=== PATIENT | male | born 2000 | race American Indian/Alaskan Native ===

== ENCOUNTER 2025-06-27 08:11 | Outpatient (AMB) | payer OTHER, SELFPAY ==
--- NOTE | 2025-06-27 08:08 | MHC.PC.OV ---
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 Intake Note: asthma Card Table Attendant Required: No Accompanied by: Self / Same As Patient Allergies No Known Allergies Allergy (Verified 06/27/25 08:09) Tobacco use date assessed: 06/27/25 Dental Screening Dental Screen Date: 06/27/25 Did you have a dental visit in the last 12 months?: Yes Did you have a dental problem in the last 6 months where you did not have access to dental care?: No Was dental information given to patient?: Patient has dentist HPI HPI Comments History of Present Illness Details History of Present Illness The patient is a 24-year-old male presenting with asthma management and evaluation of an ascended testicle. Asthma: - The patient reports no exacerbations in the past year and has not required emergency care or intubation. - He currently does not have any asthma inhalers at home. - Pulmonary function tests are planned to assess lung function. Ascended Testicle: - The patient reports a history of an ascended testicle since childhood, with the condition persisting for several years. - There is no associated pain or discomfort reported. - An ultrasound of the scrotum and pelvis is planned for further evaluation. Health Maintenance - Blood work including CBC, liver and kidney function tests, electrolytes, and screening for hepatitis B, hepatitis C, and HIV. - Pulmonary function tests due to asthma. Review of Systems - Respiratory: Denies dyspnea, wheezing, or recent exacerbations. - Genitourinary: Reports ascended testicle, denies pain or discomfort. 10-point ROS reviewed and negative except as noted in HPI Past Medical History - Asthma, with no exacerbations in the past year. - Ascended testicle, persistent since childhood. Physical Exam General: Well-appearing, in no acute distress. Vital signs: Within normal limits. HEENT: Normocephalic, atraumatic. PERRLA, EOMI. Conjunctiva clear, sclera anicteric. Oropharynx clear, mucous membranes moist. TMs intact bilaterally. Neck: Supple, no lymphadenopathy, no thyromegaly, no JVD or carotid bruits. Cardiovascular: RRR, normal S1/S2, no murmurs, rubs, or gallops. Peripheral pulses 2+ and symmetric. No edema. Respiratory: Lungs clear to auscultation bilaterally, no wheezes, rales, or rhonchi. Normal effort. Abdomen: Soft, non-tender, non-distended. Normoactive bowel sounds. No hepatosplenomegaly, no masses. MSK: Full range of motion, no joint swelling or deformity. Normal gait. Skin: Warm, dry, intact. No rashes, lesions, or pallor. Neuro: Alert and oriented x3. Cranial nerves II-XII intact. Strength 5/5 throughout. Sensation intact. Reflexes 2+ symmetric. Normal coordination and gait. Psych: Appropriate mood and affect. Normal judgment and insight.General: Well-appearing, in no acute distress. - the 1 testicle palpated could not palpate 2nd testicle Discussion Notes I discussed with the patient the need for an ultrasound of the scrotum and pelvis to evaluate the ascended testicle. We also talked about performing pulmonary function tests due to his asthma. I informed him about the blood work to be done, including CBC and screening for hepatitis B, hepatitis C, and HIV. I advised him to follow up in one to two weeks after completing the tests. Plan 1. Mild intermittent asthma, uncomplicated J45.20 - Plan to perform pulmonary function tests to assess lung function. - Prescribe an inhaler to be picked up at the patient's pharmacy. 2. Undescended testicle, unspecified Q53.9 - Plan to perform an ultrasound of the scrotum and pelvis for further evaluation. - Referral to urology for further management. 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 - Complete the blood work and pulmonary function tests as scheduled. - Attend the ultrasound appointment for the scrotum and pelvis. - Follow up with the doctor in one to two weeks after completing the tests. [facility] Family History (Updated 06/27/25 @ 08:19 by Jimbo Bro MA) Father No problems noted. Mother Asthma Seizures Social History (Updated 06/27/25 @ 08:12 by Jimbo Bro MA) Housing: House Alcohol intake: current Alcohol intake frequency: does not drink Patient Tobacco Use Status: Never used Tobacco service: No Current occupational status: employed Cognitive needs: No Hearing needs: No Vision needs: Yes (rx glasses) Questionnaire PHQ-9 Over the last 2 weeks, how often have you been bothered by any of the following problems? 1. Little interest or pleasure in doing things: not at all 2. Feeling down, depressed, or hopeless: not at all 3. Trouble falling or staying asleep, or sleeping too much: not at all 4. Feeling tired or having little energy: not at all 5. Poor appetite or overeating: not at all 6. Feeling bad about yourself - or that you are a failure or have let yourself or your family down: not at all 7. Trouble concentrating on things, such as reading the newspaper or watching television: not at all 8. Moving or speaking so slowly that other people could have noticed. Or the opposite - being so fidgety or restless that you have been moving around a lot more than usual: not at all 9. Thoughts that you would be better off or of hurting yourself in some way: not at all Total score: 0 Depression Screening Interpretation: Negative Depression Screening Done: Yes Source: Developed by Drs. Nikunj Robin, Lilo Long, Jose Angel Figueroa and colleagues, with an educational mamadou from [email or web address]. Thrive Questionnaire Date Thrive assessed: 06/27/25 I am a: Patient What is your living situation today?: I have a steady place to live Within the past 12 months, did the food you bought not last and you didn't have the money to get more?: Never true Within the past 12 months, did you worry whether your food would run out before you got money to buy more?: Never true Do you have trouble paying for medicines?: No Do you have trouble getting transportation to medical appointments?: No Do you have trouble paying your heating and electricity bill?: No Do you have trouble taking care of your child, family member or friend?: No Do you have trouble with day-to-day activities such as bathing, preparing meals, shopping, managing finances, etc.?: No Are you currently unemployed and looking for a job?: No Are you interested in more education?: No Please select the resources that you would like help with: None Currently or been in a relationship where the following occur: No concerns reported THRIVE Score: 0 AUDIT C Alcohol Use Questionnaire (AUDIT-C) 1. How often do you have a drink containing alcohol?: Never 3. How often do you have six or more drinks on one occasion?: Never Total Score: 0 ED-7 AMB Questionnaire ED-7 Date ED - 7 assessed: 06/27/25 Feeling nervous, anxious, or on edge: 0 = Not at all Not being able to stop or control worryin = Not at all Worrying too much about different things: 0 = Not at all Trouble relaxin = Not at all Being so restless that it is hard to sit still: 0 = Not at all Becoming easily annoyed or irritable: 0 = Not at all Feeling afraid as if something awful might happen: 0 = Not at all Total ED-7 score (0-4 normal; 5-9 mild; 10-14 moderate; 15-21 severe): 0 Source: Developed by Drs. Nikunj Robin, Lilo Long, Jose Angel Figueroa and colleagues, with an educational mamadou from [email or web address]. ACT Questionnaire In the past 4 weeks, how much of the time did your asthma keep you from getting as much done at work, school or at home?: None of the time During the past 4 weeks, how often have you had shortness of breath?: Not at all During the past 4 weeks, how often did your asthma symptoms wake you up at night or earlier than usual in the morning?: Once a week During the past 4 weeks, how often have you had to use your rescue inhaler or nebulizer medication?: Not at all How would you rate your asthma control during the past 4 weeks?: Somewhat controlled Score: 21 Physical exam (Primary Care) Tobacco/Smoking Status: Tobacco use Status Tobacco use date assessed 06/27/25 06/27/25 08:12 Patient Tobacco Use Status Never used Tobacco 06/27/25 08:12 PHQ-9: PHQ-9 Score PHQ-9: Total score 0 06/27/25 08:15 Depression Screening Interpretation: Negative Thrive Assessment: Date of Thrive Assessment Date Thrive assessed 06/27/25 06/27/25 08:15 Currently or been in a relationship where the following occur: No concerns reported Coding Level of Care Code New Pt Level 3 (08929) Diagnoses Encounter to establish care with new provider Z76.89 Routine lab draw Z01.89 Encounter for screening, unspecified Z13.9 Counseling, unspecified Z71.9 Asthma J45.909 Routine screening for STI (sexually transmitted infection) Z11.3 Screening for HIV (human immunodeficiency virus) Z11.4 Screening for depression Z13.31 Screening for diabetes mellitus Z13.1 Screening for lipoid disorders Z13.220 Hypertension screen Z13.6 Undescended testicle, unilateral Q53.10 Assessment & Plan Assessment & Plan (1) Encounter to establish care with new provider: Code(s): Z76.89 - Persons encountering health services in other specified circumstances (2) Routine lab draw: Code(s): Z01.89 - Encounter for other specified special examinations (3) Encounter for screening, unspecified: Code(s): Z13.9 - Encounter for screening, unspecified (4) Counseling, unspecified: Code(s): Z71.9 - Counseling, unspecified (5) Asthma: Code(s): J45.909 - Unspecified asthma, uncomplicated (6) Routine screening for STI (sexually transmitted infection): Code(s): Z11.3 - Encounter for screening for infections with a predominantly sexual mode of transmission (7) Screening for HIV (human immunodeficiency virus): Code(s): Z11.4 - Encounter for screening for human immunodeficiency virus [HIV] (8) Screening for depression: Code(s): Z13.31 - Encounter for screening for depression (9) Screening for diabetes mellitus: Code(s): Z13.1 - Encounter for screening for diabetes mellitus (10) Screening for lipoid disorders: Code(s): Z13.220 - Encounter for screening for lipoid disorders (11) Hypertension screen: Code(s): Z13.6 - Encounter for screening for cardiovascular disorders (12) Undescended testicle, unilateral: Code(s): Q53.10 - Unspecified undescended testicle, unilateral Plan Orders: Orders Hepatitis B Surface Antibody Today Z13.9 - Encounter for screening, unspecified, Z76.89 - Persons encountering health services in other specified circumstances Hepatitis B Surface Antigen Today Z13.9 - Encounter for screening, unspecified, Z76.89 - Persons encountering health services in other specified circumstances Hepatitis C Antibody Today Z13.9 - Encounter for screening, unspecified, Z76.89 - Persons encountering health services in other specified circumstances HIV Ab/Ag Today Z13.9 - Encounter for screening, unspecified, Z76.89 - Persons encountering health services in other specified circumstances Magnesium Today Z13.9 - Encounter for screening, unspecified, Z76.89 - Persons encountering health services in other specified circumstances Vitamin D 1,25 dihydroxy Today Z13.9 - Encounter for screening, unspecified, Z76.89 - Persons encountering health services in other specified circumstances Complete Blood Count Auto Diff Today Z13.9 - Encounter for screening, unspecified, Z76.89 - Persons encountering health services in other specified circumstances Comprehensive Met. Panel Today Z13.9 - Encounter for screening, unspecified, Z76.89 - Persons encountering health services in other specified circumstances Hemoglobin A1c Today Z13.9 - Encounter for screening, unspecified, Z76.89 - Persons encountering health services in other specified circumstances Lipid Panel Today Z13.9 - Encounter for screening, unspecified, Z76.89 - Persons encountering health services in other specified circumstances UA CC w/rflx Micro + Cult Today Z13.9 - Encounter for screening, unspecified, Z76.89 - Persons encountering health services in other specified circumstances PFT pulmonary function test Today J45.909 - Unspecified asthma, uncomplicated, Z13.9 - Encounter for screening, unspecified, Z76.89 - Persons encountering health services in other specified circumstances US scrotum doppler Today Q53.10 - Unspecified undescended testicle, unilateral US pelvic complete Today Q53.10 - Unspecified undescended testicle, unilateral Referrals Urology Referral Q53.10 - Unspecified undescended testicle, unilateral Medications: New albuterol sulfate 90 mcg/actuation (Ventolin HFA) 2 puffs inhalation Q6H PRN 8.5 grams 0RF shortness of breath or wheezing J45.909 - Unspecified asthma, uncomplicated
[2025-06-27 08:21] VITALS: BP 110/62; PULSE 67; RESP 16; TEMP 36.8; O2SAT 97; BMI 30.9
--- OUTSIDE RECORDS SUMMARY | 2025-06-27 08:56 | XMS_ITS | Clinical Summary ---
Author Organization [facility] Address [address] [place] [address] Care Team Providers Care Nursing Home Administrator Name Role Phone Unavailable Primary Care Provider Unavailabl e Social History Tobacco Use Types Packs/Day Years Used Date Smoking Tobacco: Never Assessed Sex and Gender Information Value Date Recorded Sex Assigned at Not on file Legal Sex Male 12:19 AM EST Gender Identity Not on file Sexual Orientation Not on file Plan of Treatment Health Maintenance Due Date Last Done Comments HPV Vaccines (1 - Male 3-dos e series) 2015 DTaP,Tdap,and Td Vaccines (1 - Tdap) 2019 Hepatitis B Vaccines (1 of 3 - 19+ 3-dose series) 2019 Depression Screening 10/10/2024 COVID-19 Vaccine (1 - 2023-2 5 season) 2025 Influenza Vaccine (#1) 2025 RSV Immunization Adult Patie nts (1 - 1-dose 75+ series) 2075 HIB Vaccines Aged Out No longer eligi ble based on patient's age to complete this topic Hepatitis A Vaccines Aged Out No long er eligible based on patient's age to complete this topic IPV Vaccines Aged Out No longer eligi ble based on patient's age to complete this topic MMR Vaccines Aged Out No longer eligi ble based on patient's age to complete this topic Meningococcal ACWY Vaccine Aged Out N o longer eligible based on patient's age to complete this topic Meningococcal B Vaccine Aged Out No l onger eligible based on patient's age to complete this topic Pneumococcal Vaccine: Pediat rics (0 to 5 Years) and At-Risk Patients (6 to 49 Years) Aged Out No longer eligible b ased on patient's age to complete this topic RSV Immunization Patients Un clari 20 months Aged Out No longer eligible b ased on patient's age to complete this topic Varicella Vaccines Aged Out No longer eligible based on patient's age to complete this topic
== END 2025-06-27 08:48 | disposition home or self-care (01) ==
LOC: HO.HMCFMS 08:12
PROVIDERS: Visit Provider Student in an Organized Health Care Education/Training Program
DX: J45.909 Unspecified asthma, uncomplicated (principal); Q53.10 Unspecified undescended testicle, unilateral

== ENCOUNTER 2025-06-27 09:15 | Outpatient (REF) | payer OTHER, SELFPAY ==
--- NOTE | ~2025-06-27 | US_ITS ---
EXAMINATION: US SCROTUM WITH DOPPLER COMPLETE, US SCROTUM HISTORY: Q53.10 - Unspecified undescended testicle, unilateral. COMPARISON: There are no prior studies available for comparison. FINDINGS: Real-time grayscale ultrasound imaging of the scrotum was performed. Color and spectral Doppler analysis was also performed. RIGHT TESTICLE: The right testis is located in the inguinal canal and measures 3.3 x 0.9 x 1.7 cm. The testis is diffusely hypoechoic. No masses are seen. The right testis demonstrates normal arterial and venous color Doppler and spectral waveforms. RIGHT EPIDIDYMIS: Normal in size, shape, and vascularity. LEFT TESTICLE: The left testis measures 4.7 x 1.9 x 2.9 cm and demonstrates normal homogeneous echotexture. The left testis is normally located in the scrotum. No masses are seen. The left testis demonstrates normal arterial and venous color Doppler and spectral waveforms. LEFT EPIDIDYMIS: Normal in size, shape, and vascularity. VARICOCELE: None. HYDROCELE: No significant hydrocele is seen. OTHER COMMENTS: None. US/US scrotum doppler IMPRESSION: The right testis is located in the inguinal canal, demonstrates atrophy, and is diffusely hypoechoic. Normal vascular flow is demonstrated. The left testis is unremarkable. Electronically signed by: Nikunj Monge MD 06/27/2025 03:11 PM EDT
--- NOTE | ~2025-06-27 | US_ITS ---
EXAMINATION: US SCROTUM WITH DOPPLER COMPLETE, US SCROTUM HISTORY: Q53.10 - Unspecified undescended testicle, unilateral. COMPARISON: There are no prior studies available for comparison. FINDINGS: Real-time grayscale ultrasound imaging of the scrotum was performed. Color and spectral Doppler analysis was also performed. RIGHT TESTICLE: The right testis is located in the inguinal canal and measures 3.3 x 0.9 x 1.7 cm. The testis is diffusely hypoechoic. No masses are seen. The right testis demonstrates normal arterial and venous color Doppler and spectral waveforms. RIGHT EPIDIDYMIS: Normal in size, shape, and vascularity. LEFT TESTICLE: The left testis measures 4.7 x 1.9 x 2.9 cm and demonstrates normal homogeneous echotexture. The left testis is normally located in the scrotum. No masses are seen. The left testis demonstrates normal arterial and venous color Doppler and spectral waveforms. LEFT EPIDIDYMIS: Normal in size, shape, and vascularity. VARICOCELE: None. HYDROCELE: No significant hydrocele is seen. OTHER COMMENTS: None. US/US scrotum IMPRESSION: The right testis is located in the inguinal canal, demonstrates atrophy, and is diffusely hypoechoic. Normal vascular flow is demonstrated. The left testis is unremarkable. Electronically signed by: Nikunj Monge MD 06/27/2025 03:11 PM EDT
[2025-06-27 13:27] LABS: Appearance Urine Clear; Glucose Urine UA Negative (Negative); PH 6.0 (5.0-9.0); Specific Gravity - Urine 1.025 (1.005-1.025)
[2025-06-27 13:32] LABS: MANUAL DIFF FLAG NO
[2025-06-27 13:39] LABS: Hematocrit 46.0 % (42.0-52.0); Hemoglobin 15.7 g/dl (14.0-18.0); Imm Gran Abs Auto 0.02 X10*3/uL (0.00-0.03); Imm Gran Pct Auto 0.3 % (0.0-0.4); Lymphocytes Absolute Auto 2.1 X10*3/uL (1.2-4.9); Mean Corpuscular HGB Conc 34.1 g/dl (31.0-36.0); Mean Corpuscular Hemoglobin 28.6 pg (27.0-33.0); Mean Corpuscular Volume 83.9 fL (80.0-98.0); NRBC Abs Auto 0.000 X10*3/uL (0.0-0.012); NRBC Pct Auto 0.0 /100WBC (0.0-0.2); Platelet Count 340 X10*3/uL (160-400); Red Blood Count 5.48 X10*6/uL (4.60-5.80); White Blood Count 7.2 X10*3/uL (4.8-10.8)
[2025-06-27 13:50] LABS: Total Hemoglobin (HGBA1C) 3988.3333 umol/L
[2025-06-27 13:54] LABS: Alanine Aminotransferase 59 U/L (0-40); Albumin Level 4.5 g/dL (3.5-5.0); Alkaline Phosphatase 66 U/L (39-117); Anion Gap 9 (12-20); Aspartate Amino Transferase 34 U/L (5-37); Blood Urea Nitrogen 10 mg/dL (9-16); Calcium 9.9 mg/dL (8.4-10.2); Carbon Dioxide 32 mmol/L (22-29); Chloride 103 mmol/L (96-108); Cholesterol 171 mg/dL (<200); Estimated Glomerular Filt Rate > 60; HDL Cholesterol 30 mg/dL (>40); Magnesium 2.0 mg/dL (1.6-2.6); Potassium 3.9 mmol/L (3.3-5.1); Sodium 140 mmol/L (135-145); Total Protein 7.6 g/dL (6.5-8.0); Triglycerides 106 mg/dL (<150)
[2025-06-28 09:16] LABS: HBS Num1 0.00 mIU/mL (0-7.99); HBsAGNum1 0.46 S/CO (0.00-0.99); HIV Num 1 0.10 S/CO (0.00-0.99); Hepatitis B Surface Antigen Negative (Negative); ~HepC Num1 0.08 S/CO (0.00-0.79); ~Hepatitis B Surface Antibody NONREACTIVE (Nonreactive); ~Hepatitis C Antibody Nonreactive (Nonreactive)
[2025-07-03 01:08] LABS: VITAMIN D (1,25 OH) D3 54 pg/mL; Vit D (1,25-Dihydroxy) Total 54 pg/mL (18-72); Vitamin D (1,25 OH) D2 <8 pg/mL
== END 2025-06-27 09:16 | disposition home or self-care (01) ==
LOC: HO.HKASLDS 09:15
PROVIDERS: Visit Provider Student in an Organized Health Care Education/Training Program
DX: J45.909 Unspecified asthma, uncomplicated (principal); Q53.112 Unilateral inguinal testis; Z76.89 Persons encountering health services in other specified circumstances; Z11.3 Encounter for screening for infections with a predominantly sexual mode of transmission; Z11.4 Encounter for screening for human immunodeficiency virus [HIV]; Z71.9 Counseling, unspecified; Z13.31 Encounter for screening for depression; Z13.39 Encounter for screening examination for other mental health and behavioral disorders; Z13.1 Encounter for screening for diabetes mellitus; Z13.6 Encounter for screening for cardiovascular disorders
CPT/HCPCS: 36415; 76870; 80053; 80061; 81003; 82652; 83036; 83735; 85025; 86706; 86803; 87340; 87389; 93975; 96127; 96160

== ENCOUNTER → 2025-06-27 14:07 | Outpatient (BNV) | payer OTHER, SELFPAY | PROVIDERS: Visit Provider Radiology Diagnostic Radiology | DX: N50.0 Atrophy of testis (principal); R93.811 Abnormal radiologic findings on diagnostic imaging of right testicle | CPT/HCPCS: 76870; 93975 ==

== ENCOUNTER 2025-07-08 10:06 | Outpatient (AMB) | payer OTHER, SELFPAY ==
[2025-07-08 10:08] VITALS: BP 125/66; PULSE 52; RESP 16; TEMP 36.8; O2SAT 98; BMI 31.0
--- NOTE | 2025-07-08 10:08 | A.OFFPC_ITS ---
Vital Signs 07/08/25 10:08 Height 5 ft 4.96 in Weight 186 lb 2 oz BMI 31.0 BP 125/66 Blood Pressure Location Lt brachial Position Sitting Respiration 16 Pulse 52 Pulse Source Pulse Oximeter Temp 98.3 F Temp Source Oral Pulse Oximetry (%) 98 Oxygen Delivery Method Room Air Intake Visit Reasons: 2 week follow up Intake Note: asthma Hired Hand Required: No Accompanied by: Self / Same As Patient Allergies No Known Allergies Allergy (Verified 07/08/25 10:09) Tobacco use date assessed: 06/27/25 Dental Screening Dental Screen Date: 06/27/25 Did you have a dental visit in the last 12 months?: Yes Did you have a dental problem in the last 6 months where you did not have access to dental care?: No Was dental information given to patient?: Patient has dentist HPI HPI Comments History of Present Illness Details History of Present Illness The patient is a 24-year-old male presenting for review of laboratory results. Eosinophilia: - Eosinophilia was identified in the pat ient's lab results, indicating an increase in eosinophils, which are cells that react to allergies. Elevated ALT: - The patient's ALT level was found to b e elevated at 59 U/L, which is above the normal range of below 40 U/L. Hyperlipidemia: - The patient's LDL cholesterol level is 120 mg/dL, which is above the recommended level of below 100 mg/dL, and HDL cholesterol is 30 mg/dL, below the recommended level of above 40 mg/dL. Review of Systems 10-point ROS reviewed and negative excep t as noted in HPI Past Medical History Health Maintenance - Referral to suit maker for dietary jose gement of hyperlipidemia. - Ultrasound of the liver to assess for fatty liver disease. Physical Exam General: Well-appearing, in no acute distress. Vital signs: Within normal limits. HEENT: Normocephalic, atraumatic. PERRLA, EOMI. Conjunctiva clear, sclera anicteric. Oropharynx clear, mucous membranes moist. TMs intact bilaterally. Neck: Supple, no lymphadenopathy, no thyromegaly, no JVD or carotid bruits. Cardiovascular: RRR, normal S1/S2, no murmurs, rubs, or gallops. Peripheral pulses 2+ and symmetric. No edema. Respiratory: Lungs clear to auscultation bilaterally, no wheezes, rales, or rhonchi. Normal effort. Abdomen: Soft, non-tender, non-distended. Normoactive bowel sounds. No hepatosplenomegaly, no masses. MSK: Full range of motion, no joint swelling or deformity. Normal gait. Skin: Warm, dry, intact. No rashes, lesions, or pallor. Neuro: Alert and oriented x3. Cranial nerves II-XII intact. Strength 5/5 throughout. Sensation intact. Reflexes 2+ symmetric. Normal coordination and gait. Psych: Appropriate mood and affect. Normal judgment and insight. Plan 1. Eosinophilia - No immediate intervention required as eosinophilia is not causing symptoms. 2. Elevated Alt - Plan to perform an ultrasound of the l iver to rule out any underlying conditions such as fatty liver disease. 3. Hyperlipidemia - Referral to a suit maker for dietary ma nagement to improve cholesterol levels. - Repeat laboratory tests in six months to monitor cholesterol levels. Discussion Notes I discussed with the patient that his eosinophilia is not a cause for concern at this time. We reviewed his elevated ALT and the plan to perform a liver ultrasound to check for any underlying issues, such as fatty liver disease. I explained the importance of managing his cholesterol levels and referred him to a suit maker for dietary advice. We agreed to repeat laboratory tests in six months to monitor his cholesterol levels. I advised him to return for a follow- up after the ultrasound to discuss the results. Patient was informed and verbally consented to the use of an ambient scribe for clinic note documentation during this visit. Patient Instructions - Schedule and attend the liver ultrasou nd as planned. - Follow up with the suit maker for dieta ry advice to manage cholesterol levels. - Return for a follow-up visit after the ultrasound to discuss results. - Plan to have repeat laboratory tests i n six months. [facility] Medical History (Updated 07/08/25 @ 10:25 by Russel Seymour MD) Elevated liver enzymes Hyperlipidemia Family History Father No problems noted. Mother Asthma Seizures Social History Housing: House Alcohol intake: current Alcohol intake frequency: does not drink Patient Tobacco Use Status: Never used Tobacco service: No Current occupational status: employed Cognitive needs: No Hearing needs: No Vision needs: Yes (rx glasses) Questionnaire PHQ-9 Over the last 2 weeks, how often have you been bothered by any of the following problems? 1. Little interest or pleasure in doing things: not at all 2. Feeling down, depressed, or hopeless: not at all 3. Trouble falling or staying asleep, or sleeping too much: not at all 4. Feeling tired or having little energy: not at all 5. Poor appetite or overeating: not at all 6. Feeling bad about yourself - or that you are a failure or have let yourself or your family down: not at all 7. Trouble concentrating on things, such as reading the newspaper or watching television: not at all 8. Moving or speaking so slowly that other people could have noticed. Or the opposite - being so fidgety or restless that you have been moving around a lot more than usual: not at all 9. Thoughts that you would be better off or of hurting yourself in some way: not at all Total score: 0 Depression Screening Interpretation: Negative Depression Screening Done: Yes Source: Developed by Drs. Nikunj Robin, Lilo Long, Jose Angel Figueroa and colleagues, with an educational mamadou from [employer]. Thrive Questionnaire Date Thrive assessed: 06/27/25 I am a: Patient What is your living situation today?: I have a steady place to live Within the past 12 months, did the food you bought not last and you didn't have the money to get more?: Never true Within the past 12 months, did you worry whether your food would run out before you got money to buy more?: Never true Do you have trouble paying for medicines?: No Do you have trouble getting transportation to medical appointments?: No Do you have trouble paying your heating and electricity bill?: Yes Do you have trouble taking care of your child, family member or friend?: No Do you have trouble with day-to-day activities such as bathing, preparing meals, shopping, managing finances, etc.?: No Are you currently unemployed and looking for a job?: No Are you interested in more education?: No Please select the resources that you would like help with: None Currently or been in a relationship where the following occur: No concerns re ported THRIVE Score: 1 AUDIT C Alcohol Use Questionnaire (AUDIT-C) 1. How often do you have a drink containing alcohol?: Never 3. How often do you have six or more drinks on one occasion?: Never Total Score: 0 ED-7 AMB Questionnaire ED-7 Date ED - 7 assessed: 06/27/25 Feeling nervous, anxious, or on edge: 0 = Not at all Not being able to stop or control worryin = Not at all Worrying too much about different things: 0 = Not at all Trouble relaxin = Not at all Being so restless that it is hard to sit still: 0 = Not at all Becoming easily annoyed or irritable: 0 = Not at all Feeling afraid as if something awful might happen: 0 = Not at all Total ED-7 score (0-4 normal; 5-9 mild; 10-14 moderate; 15-21 severe): 0 Source: Developed by Drs. Nikunj Robin, Lilo Long, Jose Angel Figueroa and colleagues, with an educational mamadou from [employer]. Physical exam (Primary Care) Vital Signs: Last Vital Signs Temp 98.3 F 07/08/25 10:08 Pulse 52 07/08/25 10:08 Resp 16 07/08/25 10:08 BP 125/66 07/08/25 10:08 Pulse Ox 98 07/08/25 10:08 Oxygen Delivery Method Room Air 07/08/25 10:08 BMI result Body Mass Index 31.0 Tobacco/Smoking Status: Tobacco use Status Tobacco use date assessed 06/27/25 07/08/25 10:11 Patient Tobacco Use Status Never used Tobacco 07/08/25 10:11 PHQ-9: PHQ-9 Score PHQ-9: Total score 0 07/08/25 10:11 Depression Screening Interpretation: Negative Thrive Assessment: Date of Thrive Assessment Date Thrive assessed 06/27/25 07/08/25 10:11 Currently or been in a relationship where the following occur: No concerns reported Coding Level of Care Code Est Pt Level 3 (42372) Diagnoses Hyperlipidemia E78.5 Elevated liver enzymes R74.8 Encounter to discuss test results Z71.2 Eosinophilia D72.10 Assessment & Plan Assessment & Plan (1) Hyperlipidemia: Code(s): E78.5 - Hyperlipidemia, unspecified Category: Medical (2) Elevated liver enzymes: Code(s): R74.8 - Abnormal levels of other serum enzymes Category: Medical (3) Encounter to discuss test results: Code(s): Z71.2 - Person consulting for explanation of examination or test findings (4) Eosinophilia: Code(s): D72.10 - Eosinophilia, unspecified Plan Orders: Orders US abdomen limited Today R74.8 - Abnormal levels of other serum enzymes Referrals Nurse Navigator Referral E78.5 - Hyperlipidemia, unspecified
--- OUTSIDE RECORDS SUMMARY | 2025-07-08 11:18 | XMS_ITS | Clinical Summary ---
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
== END 2025-07-08 10:33 | disposition home or self-care (01) ==
LOC: HO.HMCFMS 10:07
PROVIDERS: PCP Student in an Organized Health Care Education/Training Program; Visit Provider Student in an Organized Health Care Education/Training Program
DX: E78.5 Hyperlipidemia, unspecified (principal); R74.8 Abnormal levels of other serum enzymes; Z71.2 Person consulting for explanation of examination or test findings; D72.10 Eosinophilia, unspecified

== ENCOUNTER 2025-08-12 10:04 | Outpatient (AMB) | payer OTHER, SELFPAY ==
--- NOTE | 2025-08-12 10:07 | A.OFFPC_ITS ---
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 Accompanied by: Self / Same As Patient Allergies No Known Allergies Allergy (Verified 08/12/25 10:07) Medication List - Last Reconciled 08/12/25 by Russel Seymour MD albuterol sulfate 90 mcg/actuation (Ventolin HFA) 2 puffs inhalation Q6H PRN Tobacco use date assessed: 08/12/25 Dental Screening Dental Screen Date: 08/12/25 Did you have a dental visit in the last 12 months?: Yes Did you have a dental problem in the last 6 months where you did not have access to dental care?: No Was dental information given to patient?: Patient has dentist HPI HPI Comments History of Present Illness Details History of Present Illness The patient is a 24-year-old male presenting for a review of his scrotal ultrasound results. Undescended right testicle: The patient has a known history of an undescended right testicle. Noncompliance with care: The patient reports he missed a scheduled appointment on the with either a principal solutions architect or for a breathing-related issue, as he was mandated to work. He states he called to reschedule but has not received a call back. Social History: - Employment: The patient reports his wo rk mandated his presence, causing him to reschedule a prior medical appointment. Diagnostic Results: - Scrotal Ultrasound: - Left testis:demonstrates normal homoge nous echo texture, is normally located in the scrotum with normal arterial and venous flow, and has no masses. - Right testis: Located in the inguinal canal, measures 3.3 x 0.9 x 1.7 cm, is diffusely hypoechoic with no masses, and demonstrates normal arterial and venous flow. Past Medical History - Right undescended testicle - Possible breathing condition, previous ly scheduled for evaluation - Previously scheduled for an appointmen t with a principal solutions architect Health Maintenance - The patient was advised to follow up o n missed appointments with a principal solutions architect and for a breathing-related issue. [facility] Medical History (Updated 08/12/25 @ 10:33 by Russel Seymour MD) Class 1 obesity Undescended right testicle Elevated liver enzymes Hyperlipidemia Family History Father No problems noted. Mother Asthma Seizures Social History Housing: House Alcohol intake: current Alcohol intake frequency: does not drink Patient Tobacco Use Status: Never used Tobacco service: No Current occupational status: employed Cognitive needs: No Hearing needs: No Vision needs: Yes (rx glasses) Questionnaire PHQ-9 Over the last 2 weeks, how often have you been bothered by any of the following problems? 1. Little interest or pleasure in doing things: not at all 2. Feeling down, depressed, or hopeless: not at all 3. Trouble falling or staying asleep, or sleeping too much: not at all 4. Feeling tired or having little energy: not at all 5. Poor appetite or overeating: not at all 6. Feeling bad about yourself - or that you are a failure or have let yourself or your family down: not at all 7. Trouble concentrating on things, such as reading the newspaper or watching television: not at all 8. Moving or speaking so slowly that other people could have noticed. Or the opposite - being so fidgety or restless that you have been moving around a lot more than usual: not at all 9. Thoughts that you would be better off or of hurting yourself in some way: not at all Total score: 0 Depression Screening Interpretation: Negative Depression Screening Done: Yes Source: Developed by Drs. Nikunj Robin, Lilo Long, Jose Angel Figueroa and colleagues, with an educational mamadou from [employer]. Thrive Questionnaire Date Thrive assessed: 08/12/25 I am a: Patient What is your living situation today?: I have a steady place to live Within the past 12 months, did the food you bought not last and you didn't have the money to get more?: Never true Within the past 12 months, did you worry whether your food would run out before you got money to buy more?: Never true Do you have trouble paying for medicines?: No Do you have trouble getting transportation to medical appointments?: No Do you have trouble paying your heating and electricity bill?: Yes Do you have trouble taking care of your child, family member or friend?: No Are you currently unemployed and looking for a job?: No Are you interested in more education?: No Please select the resources that you would like help with: None Currently or been in a relationship where the following occur: No concerns reported THRIVE Score: 1 AUDIT C Alcohol Use Questionnaire (AUDIT-C) 1. How often do you have a drink containing alcohol?: Never 3. How often do you have six or more drinks on one occasion?: Never Total Score: 0 ED-7 AMB Questionnaire ED-7 Date ED - 7 assessed: 08/12/25 Feeling nervous, anxious, or on edge: 0 = Not at all Not being able to stop or control worryin = Not at all Worrying too much about different things: 0 = Not at all Trouble relaxin = Not at all Being so restless that it is hard to sit still: 0 = Not at all Becoming easily annoyed or irritable: 0 = Not at all Feeling afraid as if something awful might happen: 0 = Not at all Total ED-7 score (0-4 normal; 5-9 mild; 10-14 moderate; 15-21 severe): 0 Source: Developed by Drs. Nikunj Robin, Lilo Long, Jose Angel Figueroa and colleagues, with an educational mamadou from [employer]. Review of Systems Narrative Review of Systems - General: Denies any other concerns. 10-point ROS reviewed and negative except as noted in HPI Physical exam (Primary Care) Vital Signs: Last Vital Signs Temp 98.8 F 08/12/25 10:16 Pulse 68 08/12/25 10:16 BP 137/71 08/12/25 10:16 Pulse Ox 95 08/12/25 10:16 Oxygen Delivery Method Room Air 08/12/25 10:16 BMI result Body Mass Index 31.4 Tobacco/Smoking Status: Tobacco use Status Tobacco use date assessed 08/12/25 08/12/25 10:08 Patient Tobacco Use Status Never used Tobacco 08/12/25 10:08 PHQ-9: PHQ-9 Score PHQ-9: Total score 0 08/12/25 10:16 Depression Screening Interpretation: Negative Thrive Assessment: Date of Thrive Assessment Date Thrive assessed 08/12/25 08/12/25 10:08 Currently or been in a relationship where the following occur: No concerns reported Narrative Physical Exam General: Well-appearing, in no acute distress. Vital signs: Within normal limits. HEENT: Normocephalic, atraumatic. PERRLA, EOMI. Conjunctiva clear, sclera an icteric. Oropharynx clear, mucous membranes moist. TMs intact bilaterally. Neck: Supple, no lymphadenopathy, no thyromegaly, no JVD or carotid bruits. Cardiovascular: RRR, normal S1/S2, no murmurs, rubs, or gallops. Peripheral pulses 2+ and symmetric. No edema. Respiratory: Lungs clear to auscultation bilaterally, no wheezes, rales, or rhonchi. Normal effort. Abdomen: Soft, non-tender, non-distended. Normoactive bowel sounds. No hepatosplenomegaly, no masses. MSK: Full range of motion, no joint swelling or deformity. Normal gait. Skin: Warm, dry, intact. No rashes, lesions, or pallor. Neuro: Alert and oriented x3. Cranial nerves II-XII intact. Strength 5/5 throughout. Sensation intact. Reflexes 2+ symmetric. Normal coordination and gait. Psych: Appropriate mood and affect. Normal judgment and insight. Coding Level of Care Code Est Pt Level 3 (43924) Diagnoses Undescended right testicle Q53.10 Class 1 obesity E66.9 Assessment & Plan Assessment & Plan (1) Undescended right testicle: Code(s): Q53.10 - Unspecified undescended testicle, unilateral Category: Medical (2) Class 1 obesity: Code(s): E66.9 - Obesity, unspecified Category: Medical Plan Consent The patient provided verbal consent to record the encounter. Patient was informed and verbally consented to the use of an ambient scribe for clinic note documentation during this visit. Plan 1. Undescended Right Testicle - Scrotal ultrasound confirmed the right testicle is located in the inguinal canal and the left testicle is normal. - The right testicle has normal circulation, but requires surgical intervention to prevent future problems. - A stat referral will be placed to General Surgery for evaluation and potential orchiopexy. 2. Missed Appointments - The patient reported missing appointments for nutritional and breathing- related assessments. - The patient was instructed to contact the front end software engineer to reschedule these appointments. Discussion Notes I reviewed the scrotal ultrasound results with the patient, confirming his right testicle is in the inguinal canal while the left is normal. I explained that while the testicle has normal blood flow, it is important to have it surgically moved down into the scrotum to prevent potential problems later in life. I i nformed him that I am placing a stat referral to General Surgery and that they will contact him to schedule an appointment. We also discussed his missed appointments, and I advised him to speak with the front end software engineer to reschedule. Patient Instructions - You will receive a call from the General Surgery department to set up an appointment. - This appointment is important because your right testicle is not in the correct position, and it may need to be moved with surgery to prevent future health problems. - Please contact the front end software engineer to reschedule your missed appointments for the breathing evaluation and with the principal solutions architect. Medical Decision Making The patient is a 24-year-old male presenting to review imaging for a known undescended right testicle. Scrotal ultrasound confirms the right testicle is located within the inguinal canal, is hypoechoic, and is smaller than the contralateral testis, consistent with cryptorchidism. Doppler imaging reassuringly shows normal arterial and venous flow, ruling out acute torsion or vascular compromise. Given the location in the inguinal canal and associated long-term risks, surgical correction is indicated. Therefore, I have placed a stat referral to General Surgery for evaluation and management, likely via orchiopexy. Total time spent caring for the patient today was 20 minutes. This includes time spent before the visit reviewing the chart, time spent documenting, and time spent reviewing laboratory results, diagnostic imaging, medications, performing a medically necessary evaluation, counseling on diagnoses, care coordination Orders: Orders Influenza [id number] Immunization Today Z23 - Encounter for immunization Referrals General Surgery Referral Q53.10 - Unspecified undescended testicle, unilateral Medications: New Fluarix [id number] (PF) (flu vac ts (6mos up)-PF) 0.5 mL IM ONCE 0.5 mL 0RF NS Z23 - Encounter for immunization
[2025-08-12 10:16] VITALS: BP 137/71; PULSE 68; TEMP 37.1; O2SAT 95; BMI 31.4
--- OUTSIDE RECORDS SUMMARY | 2025-08-12 12:02 | XMS_ITS | Clinical Summary ---
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
== END 2025-08-12 10:34 | disposition home or self-care (01) ==
LOC: HO.HMCFMS 10:04
PROVIDERS: PCP Student in an Organized Health Care Education/Training Program; Visit Provider Student in an Organized Health Care Education/Training Program
DX: Q53.10 Unspecified undescended testicle, unilateral (principal); E66.9 Obesity, unspecified; Z23 Encounter for immunization

== ENCOUNTER → 2025-08-12 10:04 | Outpatient (BNVA) | payer OTHER, SELFPAY | PROVIDERS: Visit Provider Student in an Organized Health Care Education/Training Program | DX: Z23 Encounter for immunization (principal); E66.9 Obesity, unspecified; Q53.112 Unilateral inguinal testis | CPT/HCPCS: 90471; 90656; 96127 ==

== ENCOUNTER 2025-09-11 12:48 | Outpatient (REF) | payer OTHER, SELFPAY ==
--- NOTE | 2025-09-11 13:46 | PFT_ITS ---
Indication: Asthma Spirometry FEV1 to FVC 68%; FEV1 3.63 L; FVC 5.33 L. There is a significant response to bronchodilators noted. Of note the FEF 02/26/2075 down to 44% predicted consistent with the severity of his asthma Lung Volumes Total lung capacity 114% predicted; residual volume 109% predicted Diffusion Capacity DLCO 116% predicted Flow Volume Loops Obstructive physiology Comparisons None Interpretation There is a mild obstructive ventilatory defect consistent with uncontrolled asthma. The patient has significant small airways disease secondary to significant asthma symptoms. Lung volumes demonstrate a trend of hyperinflation due to the asthma. Diffusing capacity is within normal limits. Consider pulmonary referral. Clinical correlation warranted. MTDD
[2025-09-11 13:48] VITALS: PULSE 74
== END 2025-09-11 12:49 | disposition home or self-care (01) ==
LOC: HO.RESP 12:48
PROVIDERS: PCP Student in an Organized Health Care Education/Training Program; Visit Provider Student in an Organized Health Care Education/Training Program
DX: J45.909 Unspecified asthma, uncomplicated (principal); Z76.89 Persons encountering health services in other specified circumstances; Z13.89 Encounter for screening for other disorder
CPT/HCPCS: 94060; 94640; 94727; 94729

== ENCOUNTER → 2025-09-11 13:46 | Outpatient (BNV) | payer OTHER, SELFPAY | PROVIDERS: PCP Student in an Organized Health Care Education/Training Program; Visit Provider Hospitalist | DX: J98.4 Other disorders of lung (principal) | CPT/HCPCS: 94060; 94727; 94729 ==

== ENCOUNTER 2025-09-13 15:24 | Outpatient (AMB) | payer OTHER, SELFPAY ==
--- NOTE | 2025-09-13 15:42 | A.OFFVIS_ITS ---
Intake Visit Reasons: Undescended testicle(set) Intake Note: Reason for Visit: New Patient Undescended Testicle Urology Meds: None Blood Thinners: None Labs: A1C- 5.3 (06/27/2025) Imaging:Scrotum US 06/27/2025 Last PVR: None Family History: Prostate Cancer? no Bladder Cancer? 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 He is seen for the following urologic conditions - undescended right testicle - atrophic Discussed Current atrophic right testicle Brother had testicular cancer There is higher risk of testicular cancer and nondistended testicles Recommend simple orchiectomy He would prefer testicular prosthetic Typically this would be covered by insurance given the indication for the procedure is atrophic, undescended right testicle On exam testicle is located approximately 1-2 inches from inguinal canal Undescended right testicle Recent ultrasound - The right testis is located in the inguinal canal, demonstrates atrophy, and is diffusely hypoechoic. Normal vascular flow is demonstrated. [facility] Medical History Class 1 obesity Undescended right testicle Elevated liver enzymes Hyperlipidemia Family History Father No problems noted. Mother Asthma Seizures Social History Housing: House Alcohol intake: current Alcohol intake frequency: does not drink Patient Tobacco Use Status: Never used Tobacco service: No Current occupational status: employed Cognitive needs: No Hearing needs: No Vision needs: Yes (rx glasses) Review of Systems Const Denies chills and Denies fever(s) Card Reports no additional complaints and Denies syncope Resp Denies cough GI Denies abdominal pain and Denies heartburn Reports as per HPI and Denies change in libido Neuro Denies syncope Psych Denies change in libido Endo Denies change in libido Physical Exam Const General: cooperative, healthy appearing, comfortable and no acute distress Orientation/consciousness: patient oriented x3 HEENT Face and sinus: Yes normal facial exam Mouth: moist mucous membranes Neck Neck: Yes normal visual inspection, Yes full ROM and Yes trachea midline Chest Chest palpation & inspection: normal inspection of the chest Resp Effort & Inspection: normal respiratory effort, able to speak in complete sentences and no respiratory distress GI Inspection: Yes normal to inspection Back/Spine/Pelvis Cervical Spine: normal cervical lordosis Thoracic/Lumbar Spine: thoracic and lumbar spine normal to inspection Skin General skin exam: no rashes or lesions noted Neuro General: patient oriented x3, gait normal, tone normal and moves all extremities Extrem General: Yes normal to inspection and Yes capillary refill normal Assessment & Plan Assessment & Plan (1) Undescended right testicle: Code(s): Q53.10 - Unspecified undescended testicle, unilateral Category: Medical (2) Atrophic testicle: Code(s): N50.0 - Atrophy of testis Category: Medical Plan Risks, benefits and alternatives to therapy were discussed. These include but are not limited to infection, bleeding, damage to local organs and tissues, need for further interventions. Anesthetic risks regarding cardiac arrhythmia, blood clots, and potential mortality were discussed. The patient understands the typical recovery time and the outpatient nature of the procedure. After consideration of these risks the patient gives full informed consent and they wish to move ahead with the procedure. - right simple orchiectomy with tetsicle prosthetic Patient Instructions: This note is constructed using voice recognition software. While every effort has been made to ensure accuracy supervisor costuming errors may have been included. Imaging studies, laboratory and physical exam results were discussed and reviewed in detail. No major barriers to patient understanding were identified. An opportunity to ask questions regarding the treatment plan was provided. All questions were answered. The patient expressed understanding and agreement with the above treatment plan. The patient is aware they should contact our office by phone for worsening of their current condition or the appearance of new urologic symptoms. Compliance is encouraged with any medications and followup testing that is ordered. It is a privilege to participate in the urologic care of your patient. If you have any questions or concerns regarding treatment for the above conditions, or other urologic issues, please do not hesitate to contact me. The office telephone contact is [phone]. Sincerely, Dr Ras Avila MD, [facility] - Urology Compassionate Specialist Care for the Genitourinary System Coding Level of Care Code New Pt Level 4 (71428) Diagnoses Undescended right testicle Q53.10 Atrophic testicle N50.0
== END 2025-09-13 16:29 | disposition home or self-care (01) ==
LOC: HO.HUSH 15:25
PROVIDERS: Visit Provider Urology
DX: Q53.10 Unspecified undescended testicle, unilateral (principal); N50.0 Atrophy of testis
CPT/HCPCS: 99204

== ENCOUNTER 2025-10-01 10:38 | Outpatient (REF) | payer OTHER, SELFPAY ==
--- NOTE | ~2025-10-01 | US_ITS ---
CLINICAL HISTORY: R74.8 - Abnormal levels of other serum enzymes US abdomen limited Comparison: None provided Findings: Limited exam due to bowel gas shadowing and suboptimal acoustic window. The pancreas, abdominal aorta, IVC are obscured by bowel gas. The liver is not entirely seen, especially the left lobe and upper aspect of the right lobe, the visualized portion is normal in size, 14 cm in length, normal in echogenicity, no focal lesion is seen. No bile duct dilatation. Common duct 3 mm diameter. Normal gallbladder. Negative sonographic Stewart sign. Main portal vein shows antegrade flow. Right kidney appear slightly hyperechoic when compared to liver parenchyma on some images but isoechoic to liver parenchyma on other images, likely artifactual and probably normal in echogenicity, right kidney is otherwise normal, 10.8 cm in length. No free fluid in the right upper quadrant of the abdomen. Impression: No acute finding. No sonographic finding to account for abnormal LFT, liver is not entirely seen. This document has been electronically signed by: Phoebe Cat MD on 10/02/2025 15:00:15
--- OUTSIDE RECORDS SUMMARY | 2025-10-01 11:58 | XMS_ITS | Clinical Summary ---
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
== END 2025-10-01 10:39 ==
LOC: HO.US 10:38
PROVIDERS: PCP Student in an Organized Health Care Education/Training Program; Visit Provider Student in an Organized Health Care Education/Training Program
DX: R74.8 Abnormal levels of other serum enzymes (principal)
CPT/HCPCS: 76705

== ENCOUNTER → 2025-10-01 10:40 | Outpatient (BNV) | payer OTHER, SELFPAY | PROVIDERS: PCP Student in an Organized Health Care Education/Training Program; Visit Provider Radiology Diagnostic Radiology | DX: R74.8 Abnormal levels of other serum enzymes (principal) | CPT/HCPCS: 76705 ==